=== PATIENT | male | born 1985 ===

== ENCOUNTER 2017-06-12 20:08 | Emergency (ER) | payer OTHER ==
[2017-06-12 20:31] VITALS: BP 130/65; PULSE 65; RESP 16; TEMP 97.8; O2SAT 100
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
--- NOTE | 2017-06-13 12:52 | RAD ---
PROCEDURE: Left Knee Radiographs. HISTORY: Pain. COMPARISON: None. FINDINGS: BONES: Normal. No fracture. JOINTS: Normal. No osteoarthritis. JOINT EFFUSION: None. OTHER FINDINGS: None. IMPRESSION: Normal radiographs of the left knee.
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
== END 2017-06-12 22:14 | disposition home or self-care (01) ==
LOC: H.ER 20:08
DX: S83.92XA Sprain of unspecified site of left knee, initial encounter (principal); S43.401A Unspecified sprain of right shoulder joint, initial encounter; V49.9XXA Car occupant (driver) (passenger) injured in unspecified traffic accident, initial encounter